=== PATIENT | female | born 1995 | race Caucasian/White ===

== ENCOUNTER 2016-11-08 02:24 | Inpatient (IN) | payer OTHER ==
[2016-11-08] VITALS (19 sets, daily range): BP systolic 103–127; BP diastolic 58–84; PULSE 82–106; RESP 18–24; TEMP 97.8–98.7
[~2016-11-08] VITALS: Ht 162.6 cm; Wt 81.6 kg
[~2016-11-08 02:24] MED LIST: MACR100C PO
[2016-11-08] MEDS ORDERED: SODIUM CHLORID 0.9% 500 ML INJ 500 ML IV PRN (03:15)
[2016-11-08] MEDS ORDERED: PENICILLIN G POTASSIUM INJ 5,000,000 UNITS in SODIUM CHLORIDE 0.9% INJ 100 ML IV ONE (03:15)
[2016-11-08] MEDS ORDERED: CITRIC ACID-SODIUM CITRATE LIQ 30 ML UDC PO SCH (03:15)
[2016-11-08] MEDS ORDERED: LIDOCAINE HCL 1% 50 ML VIAL I-DERMAL PRN (03:15)
[2016-11-08] MEDS ORDERED: LIDOCAINE HCL 1% 50 ML VIAL INFIL PRN (03:15)
[2016-11-08] MEDS ORDERED: LACTATED RINGER'S 1000 ML INJ 1,000 ML IV PRN (03:15)
[2016-11-08] MEDS ORDERED: OXYTOCIN 30 UNITS-500ML PREMIX 500 ML IV ONE (03:15)
[2016-11-08] MEDS ORDERED: MINERAL OIL 10 ML VIAL TOPICAL PRN (03:15)
[2016-11-08] MEDS ORDERED: ONDANSETRON HCL 4 MG/2 ML VIAL IV PRN (03:15)
--- NOTE | 2016-11-08 03:15 | HHI.HP ---
HPI Chief Complaint Water broke Date Seen: Nov 08, 2016 Travel History International Travel<30 Days: No Contact w/Intl Traveler<30Days: No Known Affected Area: No History of Present Illness HPI Patient is 21-year-old white female at 39 weeks goes to [facility] for care. Presents complaining of water breaking hour or 2 ago and having a few contractions that she describes as just pressure, heart rate tracing is reactive she is yo every 3-4 minutes Para: 0 : 1 History Social History Alcohol Use: No Tobacco Use: No Substance Abuse: No Allergies-Medications (Allergen,Severity, Reaction): Coded Allergies: No Known Allergies (Unverified , 09/04/15) Home Meds Active Scripts Nitrofurantoin Monohyd Macro (Macrobid)100 Mg Cap1 Tab PO BID 10 Days Ref 0 Prov:Abdias Patten MD 09/04/15 Review of Systems General / Constitutional: No: Fever, Weight Gain, Chills, Other Eyes: No: Diploplia, Blurred Vision, Visual changes, Pain, Photophobia HENT: No: Headaches, Vertigo, Lightheadedness Cardiovascular: No: Irregular Rhythm, Chest Pain or Discomfort, Palpitations, Tachycardia, Syncope, Varicosities, Edema, Cyanosis Respiratory: No: Cough, Short of Breath, Other Gastrointestinal: No: Nausea, Vomiting, Diarrhea Genitourinary: No: Decreased Urinary Output, Oliguria Musculoskeletal: No: Limited ROM, Weakness, Cramping, Edema, Pain Skin: No Rash, No Itching, No Dryness, No Lumps, No Change in Pigmentation, No Change in Nails, No Alopecia, No Lesions Neurologic: No: Weakness, Dizziness, Syncope, Focal Abnormalities, Coordination Problem, Headache, Slurred Speech, Seizures Psychiatric: No: Depression, Suicidal Ideations, Homicidal Ideation Endocrine: No: Heat Intolerance, Cold Intolerance, Polydipsia, Polyuria, Other Physical Exam Narrative GENERAL: Well-nourished, well-developed patient. SKIN: Warm and dry. HEAD: Normocephalic and atraumatic. EYES: No scleral icterus. No injection or drainage. ENT: No nasal drainage noted. Mucous membranes pink. Airway patent. NECK: Supple, trachea midline. No JVD. CARDIOVASCULAR: Regular rate and rhythm without murmurs, gallops, or rubs. RESPIRATORY: Breath sounds equal bilaterally. No accessory muscle use. BREASTS: Bilateral exam showed no masses , no retractions, no nipple discharge. ABDOMEN/GI: Abdomen soft, non-tender, bowel sounds present, no rebound, no guarding Gravid to [39-] weeks size Fundal Height: [-39] GENITOURINARY: External Genitalia: intact and normal in appearance BUS glands: [-] Cervix: [-] Dilatation: [-5] Effacement: [80-] Station: [-2] Presentation: [vtx-] Membranes: [ ruptured] can still feel a bag present however she is grossly ruptured Uterine Contractions: [q 3 min-] FHT's: Category: [-1] Baseline: [-133] Reactive: [yes-] Variability: [mod-] Decels: [none-] EXTREMITIES: No cyanosis or edema. BACK: Nontender without obvious deformity. No CVA tenderness. NEUROLOGICAL: Awake and alert. Motor and sensory grossly within normal limits. Five out of 5 muscle strength in all muscle groups. Normal speech. Assessment/Plan Assessment and Plan Patient is 21-year-old white female at 39 weeks who presents with spontaneous ruptured membranes and early contractions. Heart rate tracing is reactive contractions every 3 minutes. Cervix is 5 cm 80% -2 with still a palpable bag present. Baby is cephalic presentation Impression SROM and early labor at 39 weeks Plan-admit to manage labor augment as needed and anticipate vaginal delivery, since patient's GBS status is unknown will treat empirically- Matty Harding II, MD Nov 08, 2016 03:15
[2016-11-08] MEDS ORDERED: SODIUM CHLOR 0.9% 1000 ML INJ 1,000 ML IV PRN (03:35)
[2016-11-08] MEDS: LACTATED RINGER'S 1000 ML INJ 1,000 ML IV SCH ×2 (04:10→06:30)
[2016-11-08 04:13] LABS: AUTOMATED NEUTROPHIL # 8.7 TH/MM3 (1.8-7.7); BASOPHIL % 0.2 % (0.0-2.0); EOSINOPHIL # 0.1 TH/MM3 (0-0.4); EOSINOPHIL % 0.6 % (0.0-4.0); HEMATOCRIT 36.2 % (35.0-46.0); HEMO FLAGS DIFF FINAL; LYMPHOCYTE # 2.1 TH/MM3 (1.0-4.8); MEAN CELL VOLUME 85.3 FL (80.0-100.0); MEAN CORPUSCULAR HEMOGLOBIN 29.9 PG (27.0-34.0); MONO % 7.9 % (0.0-8.0); NEUT % 73.3 % (16.0-70.0); PLATELET COUNT 150 TH/MM3 (150-450); RED BLOOD COUNT 4.24 MIL/MM3 (4.00-5.30); RED CELL DISTRIBUTION WIDTH 13.3 % (11.6-17.2); WHITE BLOOD COUNT 11.9 TH/MM3 (4.0-11.0)
[2016-11-08 04:17] LABS: BLOOD, URINE NEG (NEG); COMMENT (UR) CULT NOT INDICATED; CULTURE IF INDICATED CULT NOT INDICATED; GLUCOSE,URINE NEG (NEG); KETONE, URINE NEG (NEG); MUCUS URINE FEW /lpf (OCC); NITRITE,URINE NEG (NEG); PH, URINE 6.5 (5.0-8.5); SQUAMOUS EPITHELIAL CELL URINE <1 /hpf (0-5); URINE COLOR LIGHT-YELLOW (YELLW/STRAW)
[2016-11-08] MEDS ORDERED: PENICILLIN G POTASSIUM INJ 2,500,000 UNITS in SODIUM CHLORIDE 0.9% INJ 100 ML IV SCH (07:00)
--- NOTE | 2016-11-08 08:42 | PD.OB.DELI ---
Delivery Date: Nov 08, 2016 Anesthesia: Lidocaine local to perineum Episiotomy: None Vaginal Delivery: Normal Presentation: Occiput anterior Nuchal Cord: None Delayed cord clamping (45 sec): Yes : Male One Minute : 9 Five Minute : 9 Weight: 3500 g Placenta: Spontaneous delivery Laceration: Vaginal laceration (jagged left and inferior vaginal lacerations) Repair: Chromic running Estimated blood loss: 500 mL Additional Information Delivery and laceration repair by Dr. Figueroa Supervised by Osman Cordova MD R2 Nov 08, 2016 08:42
[2016-11-08] MEDS ORDERED: ZOLPIDEM TARTRATE 5 MG TAB PO PRN (08:45)
[2016-11-08] MEDS ORDERED: ACETAMINOPHEN 325 MG TAB PO PRN (08:45)
[2016-11-08] MEDS ORDERED: SODIUM CHLORIDE 0.9% FLUSH 10 ML FLUSH IV FLUSH PRN (08:45)
[2016-11-08] MEDS ORDERED: DOCUSATE SODIUM 50 MG/SENNA 8.6 MG TAB PO PRN (08:45)
[2016-11-08] MEDS ORDERED: ALUMINUM/MAGNESIUM/SIMETH 30 ML CUP PO PRN (08:45)
[2016-11-08] MEDS ORDERED: ONDANSETRON ODT 4 MG TAB PO PRN (08:45)
[2016-11-08] MEDS ORDERED: SODIUM CHLORIDE 0.9% FLUSH 10 ML FLUSH IV FLUSH SCH (09:00)
[2016-11-08] MEDS ORDERED: OXYTOCIN 30 UNITS-500ML PREMIX 500 ML IV SCH (09:00)
[2016-11-08] MEDS: IBUPROFEN 600 MG TAB PO PRN ×2 (09:25→19:39)
[2016-11-08] MEDS: BENZOCAINE 20% TOPICAL SPRAY 60 ML CAN TOPICAL PRN (09:26)
[2016-11-08] MEDS: WITCH HAZEL 50%/GLYCERIN 12.5% 40 PAD JAR TOPICAL PRN (09:26)
[2016-11-08] MEDS ORDERED: AMMONIA AROMATIC INHALANT 0.33 ML ONE (11:39)
[2016-11-08] MEDS ORDERED: DIPHTH/TETANUS/ACEL PERTUSSIS (BOOSTER) 0.5 ML VIAL/PFS IM ONE (16:00)
[2016-11-08] MEDS ORDERED: MEASLES, MUMPS, RUBELLA VACCINE 0.5 ML VIAL SQ ONE (16:00)
[2016-11-09 07:15] VITALS: BP_SYST 89; BP_SYST 93; BP_DIAS 56; BP_DIAS 63
--- NOTE | 2016-11-09 07:45 | HHI.OB ---
Subjective Remarks day # 1, AFVSS overnight. Decreased lochia. Denies dysuria. No breast tenderness. She is feeding the baby via formula. Appetite good. No nausea or vomiting. Positive flatus/bowel movement. Ambulating well. Denies calf pain or shortness of breath. Otherwise, she is doing well this morning and has no other complaints. (Yael Shah MD, R3) Objective Vitals/I&O Vital Signs Date Time Temp Pulse Resp B/P Pulse Ox O2 Delivery O2 Flow Rate FiO2 11/08/16 19:50 98.7 20 11/08/16 19:50 94 103/60 11/08/16 10:40 98.5 90 18 110/61 11/08/16 09:28 18 11/08/16 09:28 91 111/70 11/08/16 09:07 90 117/68 11/08/16 08:55 20 11/08/16 08:54 103 108/63 11/08/16 08:50 20 11/08/16 08:37 82 114/58 11/08/16 08:24 20 11/08/16 08:22 89 123/66 11/08/16 08:02 95 121/70 11/08/16 07:55 98.2 11/08/16 07:53 103 24 120/63 Objective Remarks GENERAL: Well-nourished, well-developed patient. CARDIOVASCULAR: Regular rate and rhythm without murmurs, gallops, or rubs. RESPIRATORY: Breath sounds equal bilaterally. No accessory muscle use. ABDOMEN/GI: Abdomen soft, non-tender. Fundus: Firm, non-tender at umbilicus. GENITOURINARY: Light to moderate bleeding. EXTREMITIES: No cyanosis or edema, non-tender, without signs of DVT. Medications and IVs Current Medications Medications (Trade) Dose Ordered Sig/Latasha Route Start Time Stop Time Status Last Admin (NS Flush) 2 ml BID IV FLUSH 11/08/16 09:00 (NS Flush) 2 ml UNSCH PRN IV FLUSH 11/08/16 08:45 (Tylenol) 650 mg Q4H PRN PO 11/08/16 08:45 (Motrin) 600 mg Q6H PRN PO 11/08/16 08:45 11/08/16 19:39 (Americaine 20% Top Spr) 1 spray Q4H PRN TOPICAL 11/08/16 08:45 11/08/16 09:26 (Tucks Pads) 1 applic QID PRN TOPICAL 11/08/16 08:45 11/08/16 09:26 (Cassie-Colace) 2 tab Q12H PRN PO 11/08/16 08:45 (Ambien) 5 mg HS PRN PO 11/08/16 08:45 (Mag-Al Plus Susp Liq) 15 ml Q8H PRN PO 11/08/16 08:45 (Zofran Odt) 4 mg Q6H PRN PO 11/08/16 08:45 (Yael Shah MD, R3) Assessment/Plan Assessment and Plan 21 y/o female who is PPD# 1 s/p . -Continue routine care. -Percocet and Motrin PRN pain. -Encouraged OOB. Advised pelvic rest for 6 wks. -Re: ctrl, she would like Depo-Provera. -Anticipate discharge home tomorrow. dw Dr. Osuna and Dr. Evans R1 (Yael Shah MD, R3) Collaborating MD Comments Patient seen and evaluated with resident team. (Fabiola Osuna MD) Yael Shah MD, R3 Nov 09, 2016 07:44 Fabiola Osuna MD Nov 10, 2016 10:59
[2016-11-09 07:55] VITALS: BP 89/50; PULSE 81; RESP 18; TEMP 97.9
[2016-11-09] MEDS: IBUPROFEN 600 MG TAB PO PRN (15:22)
[2016-11-09 20:45] VITALS: BP 112/69; PULSE 100; RESP 18; TEMP 98.3
[2016-11-10] MEDS: IBUPROFEN 600 MG TAB PO PRN ×2 (03:20→09:30)
[2016-11-10] MEDS: WITCH HAZEL 50%/GLYCERIN 12.5% 40 PAD JAR TOPICAL PRN (03:24)
[2016-11-10] MEDS: BENZOCAINE 20% TOPICAL SPRAY 60 ML CAN TOPICAL PRN (03:24)
[2016-11-10] MEDS ORDERED: IBUP-232 PO (08:10)
[2016-11-10] MEDS ORDERED: PERI8.6T PO (08:10)
--- NOTE | 2016-11-10 08:10 | HHI.DCPOC ---
Discharge Care Plan Diagnosis: (1) (spontaneous vaginal delivery) Report Symptoms to Your Doctor -Temperature above 100.5 degrees -Redness, of incision or excessive or foul smelling drainage -Unusual pain or calf pain -Increased vaginal bleeding -Painful or difficulty urinating -Feelings of extreme sadness or anxiety after 2 weeks Goals to Promote Your Health * To prevent worsening of your condition and complications * To maintain your health at the optimal level Directions to Meet Your Goals Take your medications as prescribed Follow your dietary instruction Follow activity as directed Ensure plenty of rest for recovery Drink fluids for hydration Keep your appointments as scheduled Take your immunizations and boosters as scheduled If your symptoms worsen call your PCP, if no PCP go to Urgent Care Center or Emergency Room Smoking is Dangerous to Your Health. Avoid second hand smoke Call the 24-hour crisis hotline for domestic abuse at Yael Shah MD, R3 Nov 10, 2016 08:10
--- NOTE | 2016-11-10 08:58 | HHI.OB ---
Subjective Post Day: 2 Remarks day # 2, AFVSS overnight. Decreased lochia. Denies dysuria. No breast tenderness. She is feeding the baby via formula. Appetite good. No nausea or vomiting. Positive flatus/bowel movement. Ambulating well. Denies calf pain or shortness of breath. Otherwise, she is doing well this morning and has no other complaints. Objective Vitals/I&O Vital Signs Date Time Temp Pulse Resp B/P Pulse Ox O2 Delivery O2 Flow Rate FiO2 11/09/16 20:45 100 112/69 11/09/16 20:45 98.3 18 Objective Remarks GENERAL: Well-nourished, well-developed patient. CARDIOVASCULAR: Regular rate and rhythm without murmurs, gallops, or rubs. RESPIRATORY: Breath sounds equal bilaterally. No accessory muscle use. ABDOMEN/GI: Abdomen soft, non-tender. Fundus: Firm, non-tender at umbilicus. GENITOURINARY: Light to moderate bleeding. EXTREMITIES: No cyanosis or edema, non-tender, without signs of DVT. Medications and IVs Current Medications Medications (Trade) Dose Ordered Sig/Latasha Route Start Time Stop Time Status Last Admin (NS Flush) 2 ml BID IV FLUSH 11/08/16 09:00 (NS Flush) 2 ml UNSCH PRN IV FLUSH 11/08/16 08:45 (Tylenol) 650 mg Q4H PRN PO 11/08/16 08:45 11/10/16 03:20 (Motrin) 600 mg Q6H PRN PO 11/08/16 08:45 11/10/16 03:20 (Americaine 20% Top Spr) 1 spray Q4H PRN TOPICAL 11/08/16 08:45 11/10/16 03:24 (Tucks Pads) 1 applic QID PRN TOPICAL 11/08/16 08:45 11/10/16 03:24 (Cassie-Colace) 2 tab Q12H PRN PO 11/08/16 08:45 11/10/16 03:20 (Ambien) 5 mg HS PRN PO 11/08/16 08:45 (Mag-Al Plus Susp Liq) 15 ml Q8H PRN PO 11/08/16 08:45 (Zofran Odt) 4 mg Q6H PRN PO 11/08/16 08:45 (Depo-Provera Inj) 150 mg ONCE ONCE IM 11/10/16 09:00 11/10/16 09:01 Assessment/Plan Assessment and Plan 21 y/o female who is PPD# 1 s/p . -Continue routine care. -Percocet and Motrin PRN pain. -Encouraged OOB. Advised pelvic rest for 6 wks. - Depo-Provera for control - Anticipate discharge home today. dw Dr. Osuna and Dr. Evans R1 Rui Evans MD R1 Nov 10, 2016 08:58
[2016-11-10] MEDS ORDERED: medroxyPROGESTERone ACETATE SUSP 150 MG/ML SYRINGE IM ONE (09:00)
[2016-11-10 09:22] VITALS: BP 102/60; PULSE 95; RESP 18; TEMP 98.2
== END 2016-11-10 13:30 | disposition home or self-care (01) | DRG 775 ==
LOC: HOBED 02:24 → H2EB 03:16 → H1EA 09:45
PROVIDERS: ADMIT Obstetrics & Gynecology Maternal & Fetal Medicine; ATTEND Obstetrics & Gynecology Maternal & Fetal Medicine
PROC: 10E0XZZ Delivery of Products of Conception, External Approach (ICD-10-PCS; principal; 2016-11-08)
PROC: 0KQM0ZZ Repair Perineum Muscle, Open Approach (ICD-10-PCS; 2016-11-08)
DX: O71.4 Obstetric high vaginal laceration alone (principal); Z37.0 Single live birth; O26.893 Other specified pregnancy related conditions, third trimester; Z3A.39 39 weeks gestation of pregnancy
CPT/HCPCS: 59025; 81001; 84112; 85025; 85461; 86077; 86850; 86870; 86900; 86901; 86920; 86922; 90384; 90715; J1050; J2540; J2790; J3010; J7120

== ENCOUNTER 2017-06-24 13:00 | Emergency (ER) | payer OTHER ==
[~2017-06-24 13:00] MED LIST changes: +IBUP-232 PO; -MACR100C PO; +PERI8.6T PO
[2017-06-24 13:09] VITALS: BP 116/58; PULSE 92; RESP 18; TEMP 98.9; O2SAT 99
== END 2017-06-24 13:42 | disposition left against medical advice (07) ==
LOC: NETRI 13:00
DX: R51 Headache (principal); Z53.21 Procedure and treatment not carried out due to patient leaving prior to being seen by health care provider
CPT/HCPCS: 99281